=== PATIENT | female | born 1970 | race Caucasian/White ===

== ENCOUNTER 2021-11-22 22:38 | Emergency (ER) | payer SELFPAY ==
[~2021-11-22] VITALS: Ht 162.6 cm; Wt 75.0 kg
[2021-11-22 22:49] VITALS: BP 150/88
[2021-11-22] MEDS ORDERED: PRED-220 PO (23:07)
--- NOTE | 2021-11-22 23:08 | PHYS DOC ---
Past History Past Surgical History: Cholecystectomy, Tubal ligation Alcohol Use: None General Adult EDM: Chief Complaint: SKIN RASH/ABSCESS HPI: HPI: 51-year-old female presents with rash. The rash is intensely pruritic and all over her upper and lower extremities. She has some on her right ear and scalp. She denies any on her abdomen area, chest, or back. She does do landscaping as a job. She has continued to have new areas of breakout today. She is pretty sure it is poison denia or similar. Review of Systems: Review of Systems: Constitutional: Denies fever or chills Eyes: Denies change in visual acuity HENT: Denies nasal congestion or sore throat Respiratory: Denies cough or shortness of breath Cardiovascular: Denies chest pain or edema GI: Denies abdominal pain, nausea, vomiting, bloody stools or diarrhea : Denies dysuria Musculoskeletal: Denies back pain or joint pain Integument: Rash Neurologic: Denies headache, focal weakness or sensory changes Endocrine: Denies polyuria or polydipsia Lymphatic: Denies swollen glands Psychiatric: Denies depression or anxiety Current Medications: Current Meds: Current Medications Medications (Trade) Dose Ordered Sig/Jesi Start Time Stop Time Status Last Admin Dose Admin Dexamethasone Sodium Phosphate (Decadron) 10 mg 1X ONCE 11/22/21 23:00 11/22/21 23:01 UNV Allergies: Allergies: Allergies Coded Allergies Type Severity Reaction Last Updated Verified aspirin Allergy Intermediate 11/22/21 Yes Physical Exam: PE: Constitutional: Well developed, well nourished, no acute distress, non-toxic appearance. [] HENT: Normocephalic, atraumatic, bilateral external ears normal, oropharynx moist, no oral exudates, nose normal. [] Eyes: PERRLA, EOMI, conjunctiva normal, no discharge. [] Neck: Normal range of motion, no tenderness, supple, no stridor. [] Cardiovascular: Heart rate regular rhythm, no murmur [] Lungs & Thorax: Bilateral breath sounds clear to auscultation [] Abdomen: Bowel sounds normal, soft, no tenderness, no masses, no pulsatile masses. [] Skin: Erythematous, vesicular rash all over the bilateral upper and lower extremities, right ear, scattered areas of the superior scalp. [] Back: No tenderness, no CVA tenderness. [] Extremities: No tenderness, no cyanosis, no clubbing, ROM intact, no edema. [] Neurologic: Alert and oriented X 3, normal motor function, normal sensory function, no focal deficits noted. [] Psychologic: Affect normal, judgement normal, mood normal. [] Current Patient Data: Vital Signs: Vital Signs Date Time Temp Pulse Resp B/P (MAP) Pulse Ox O2 Delivery O2 Flow Rate FiO2 11/22/21 22:49 97.9 102 18 150/88 (108) 98 Room Air EKG: EKG: [] Radiology/Procedures: Radiology/Procedures: [] Heart Score: C/O Chest Pain: N/A Risk Factors: Risk Factors: DM, Current or recent (<one month) smoker, HTN, HLP, family history of CAD, obesity. Risk Scores: Score 0 - 3: 2.5% MACE over next 6 weeks - Discharge Home Score 4 - 6: 20.3% MACE over next 6 weeks - Admit for Clinical Observation Score 7 - 10: 72.7% MACE over next 6 weeks - Early Invasive Strategies Course & Med Decision Making: Course & Med Decision Making Pertinent Labs and Imaging studies reviewed. (See chart for details) The patient appears to have poison denia or similar. I will treat with Decadron IM in the emergency room followed by steroid taper. We will also give her 20 Pepcid in the ER and she will take Benadryl at home. She is stable for discharge at this time. [] Yudi Disclaimer: Yudi Disclaimer: This electronic medical record was generated, in whole or in part, using a voice recognition dictation system. Departure Departure: Impression: Primary Impression: Poison denia dermatitis Disposition: HOME / SELF CARE / HOMELESS Condition: STABLE Referrals: PCP,NO (PCP) Patient Instructions: Poison Denia, [id number] Scripts Prednisone (PREDNISONE) 10 Mg Tablet 10 MG PO UD for PREDNISONE TAPER, #33 TAB 0 Refills Take 5 tablets by mouth daily for 3 days, then take 3 tablets by mouth daily for 3 days, then take 2 tablet by mouth daily for 3 days, then take 1 tablet by mouth daily for 3 days, then stop. Prov: ZIGGY BRENNAN DO 11/22/21 ZIGGY BRENNAN DO November 22, 2021 23:07
[2021-11-22] MEDS ORDERED: FAMOTIDINE 20 MG TABLET PO ONE (23:30)
[2021-11-22] MEDS ORDERED: DEXAMETHASONE SOD PHOS 10 MG/ML VIAL. IM ONE (23:30)
== END 2021-11-22 23:21 | disposition home or self-care (01) ==
LOC: ER 22:38
DX: L23.7 Allergic contact dermatitis due to plants, except food (principal); Z88.6 Allergy status to analgesic agent
CPT/HCPCS: 96372; 99283; J1100